=== PATIENT | female | born 1985 | race Two or more races ===

== ENCOUNTER 2025-01-17 07:06 | Outpatient (CLI) | payer OTHER | END 2025-01-17 07:14 | disposition home or self-care (01) | LOC: MAMO-SONO 07:06 | PROVIDERS: ATTEND Obstetrics & Gynecology | DX: N60.11 Diffuse cystic mastopathy of right breast (principal); N60.12 Diffuse cystic mastopathy of left breast; Z12.31 Encounter for screening mammogram for malignant neoplasm of breast ==